=== PATIENT | male | born 1995 | race Two or more races ===

== ENCOUNTER 2017-04-14 11:36 | Emergency (ER) | payer MEDICAID ==
[~2017-04-14] VITALS: Ht 177.8 cm; Wt 59.4 kg
[2017-04-14 13:12] VITALS: BP 143/70
[2017-04-14] MEDS ORDERED: IBUPROFEN 800 MG TAB PO ONE (13:45)
== END 2017-04-14 14:03 | disposition home or self-care (01) ==
LOC: ER 11:41
DX: S92.422A Displaced fracture of distal phalanx of left great toe, initial encounter for closed fracture (principal); S91.332A Puncture wound without foreign body, left foot, initial encounter; X58.XXXA Exposure to other specified factors, initial encounter; Y93.89 Activity, other specified; Y99.8 Other external cause status; Y92.69 Other specified industrial and construction area as the place of occurrence of the external cause
CPT/HCPCS: 73630

== ENCOUNTER 2018-10-07 07:02 | Emergency (ER) | payer MEDICAID ==
[~2018-10-07] VITALS: Ht 180.3 cm; Wt 65.8 kg
[2018-10-07 07:41] VITALS: BP 126/45
== END 2018-10-07 08:10 | disposition home or self-care (01) ==
LOC: ER 07:02
DX: S61.231A Puncture wound without foreign body of left index finger without damage to nail, initial encounter (principal); W55.01XA Bitten by cat, initial encounter; Y93.89 Activity, other specified; Y92.89 Other specified places as the place of occurrence of the external cause; Y99.8 Other external cause status